=== PATIENT | female | born 1980 | race Caucasian/White ===

== ENCOUNTER 2018-07-19 12:40 | Emergency (ER) | payer OTHER, SELFPAY ==
[2018-07-19 12:42] VITALS: BP 108/75; PULSE 63; RESP 18; TEMP 37.3; O2SAT 97; BMI 21.9
--- NOTE | 2018-07-19 13:16 | ED.VISSUMM ---
- ER Visit Summary Date of Service: 07/19/18 Chief Complaint: Possible bat bite History of Present Illness: The patient is a 38 F who presents with rabies exposure that occurred today. Patient states she woke up this morning and there was a bat in her room. Patient states that animal control came to the house and was able to capture the bat. Patient does not think she was bitten. Patient denies any symptoms. Patient states that animal control euthanized the bat and it is now at the health department. Physical Examination: Vital signs are stable. Patient is afebrile. Patient is in no acute distress. Oral mucosa is pink and moist. Neck is supple. Trachea is midline. Is no JVD noted. Heart was regular rate and rhythm. Lungs are clear and equal bilateral. There is good respiratory effort noted. Abdomen is soft and nontender. Cranial nerves II through XII are intact. There are no focal motor or sensory deficits noted. The remaining physical exam is within normal limits. Emergency Department Course and Treatment: Patient was given rabies immunoglobulin and rabies vaccine here. Patient was instructed to return in 3 days for her next rabies vaccine. Patient was given a schedule for her rabies vaccinations. Patient was also instructed to follow-up with the health department. Patient understood and was agreeable with the plan. All questions were answered. Disposition: Discharged home Impression: Rabies exposure This note was generated with [employer] dictation software. It may contain incorrect words, spelling, and punctuation that were not noted in review of the chart prior to signing ED Disposition - Plan for ED Patient: Disposition: Home or Assisted Living Chief Complaint: Bite Diagnosis: Need for post exposure prophylaxis for rabies Instructions: Rabies Immune Globulin (Human) Solution for injection Referrals: Zachery Bear [Primary Care Provider] -
[2018-07-19] MEDS: Rabies Vaccine,Human Diploid 2.5 UNITS Vial IM (14:06)
[2018-07-19] MEDS: Rabies Immune Globulin 150 UNITS/ML 1240 UNITS IM (14:08)
== END 2018-07-19 14:35 | disposition home or self-care (01) ==
LOC: ED 14:04
PROVIDERS: Emergency Provider Emergency Medicine; Family Provider Student in an Organized Health Care Education/Training Program; PCP Student in an Organized Health Care Education/Training Program
DX: Z20.3 Contact with and (suspected) exposure to rabies (principal)
CPT/HCPCS: 90375; 90675; 96372; 99282

== ENCOUNTER → 2018-07-22 11:51 | Outpatient (CLI) | payer OTHER, SELFPAY ==
[2018-07-22 11:54] VITALS: BP 106/73; PULSE 52; RESP 17; O2SAT 99
== END ==
PROVIDERS: Family Provider Student in an Organized Health Care Education/Training Program; PCP Student in an Organized Health Care Education/Training Program; Visit Provider Emergency Medicine
DX: Z23 Encounter for immunization (principal)
CPT/HCPCS: 90675; 96372

== ENCOUNTER 2018-07-26 16:21 | Outpatient (CLI) | payer OTHER, SELFPAY ==
[2018-07-26 16:22] VITALS: BP 121/71; PULSE 77; RESP 15; TEMP 37.1; O2SAT 98; BMI 22.6
[2018-07-26] MEDS: Rabies Vaccine,Human Diploid 2.5 UNITS Vial IM (16:45)
== END 2018-07-26 17:10 | disposition home or self-care (01) ==
LOC: ED 18:04
PROVIDERS: Family Provider Student in an Organized Health Care Education/Training Program; PCP Student in an Organized Health Care Education/Training Program
DX: Z23 Encounter for immunization (principal); Z20.3 Contact with and (suspected) exposure to rabies
CPT/HCPCS: 90675; 96372

== ENCOUNTER → 2018-08-03 11:21 | Outpatient (CLI) | payer OTHER, SELFPAY ==
[2018-08-03 10:55] VITALS: BP 109/56; PULSE 52; RESP 18; TEMP 36.6; O2SAT 99; BMI 22.6
[2018-08-03 10:57] VITALS: BP 109/56; PULSE 52; RESP 18; TEMP 36.6; O2SAT 99; BMI 22.6
[2018-08-03 11:20] VITALS: BMI 22.6
[2018-08-03] MEDS: Rabies Vaccine,Human Diploid 2.5 UNITS Vial IM (11:21)
== END ==
PROVIDERS: Family Provider Student in an Organized Health Care Education/Training Program; PCP Student in an Organized Health Care Education/Training Program; Visit Provider Emergency Medicine
DX: Z23 Encounter for immunization (principal)
CPT/HCPCS: 90675; 96372

== ENCOUNTER → 2024-12-16 | Outpatient (CLI) | payer OTHER, SELFPAY ==
[2024-12-16 17:35] LABS: Erythrocyte Sedimentation Rate < 1 mm/hr (0-30)
[2024-12-16 17:59] LABS: Amylase 78 U/L (25-115); CPK Total, Creatine Kinase 105 U/L (26-192); CRP < 2.90 mg/L (0.0-3.0); Follicle Stimulating Hormone 11.6 mIU/mL; LDH 161 U/L (84-246); Lipase 44 U/L (13-75); Luteinizing Hormone 4.6 mIU/mL
[2024-12-22 12:08] LABS: Alternaria alternata <0.10 kU/L (Class 0); Beef <0.10 kU/L (Class 0); Bermuda Grass <0.10 kU/L (Class 0); Bluegrass, Kentucky <0.10 kU/L (Class 0); Cat Hair/Dander, Standard <0.10 kU/L (Class 0); Chocolate <0.10 kU/L (Class 0); Codfish <0.10 kU/L (Class 0); Corn 0.11 kU/L (Class 0/I); D farinae Mite <0.10 kU/L (Class 0); D pteronyssinus <0.10 kU/L (Class 0); Dog Epithelia <0.10 kU/L (Class 0); Egg, Whole <0.10 kU/L (Class 0); Elm, American White <0.10 kU/L (Class 0); Milk (Cow) <0.10 kU/L (Class 0); Mouse Urine <0.10 kU/L (Class 0); Mussels <0.10 kU/L (Class 0); Oak, White <0.10 kU/L (Class 0); PROGESTERONE 0.7 ng/mL (.); Peanut <0.10 kU/L (Class 0); Plantain, English <0.10 kU/L (Class 0); Pork <0.10 kU/L (Class 0); Ragweed, Short/Common <0.10 kU/L (Class 0); Salmon <0.10 kU/L (Class 0); Shrimp <0.10 kU/L (Class 0); Soybean <0.10 kU/L (Class 0); Tuna <0.10 kU/L (Class 0); Wheat <0.10 kU/L (Class 0)
[2024-12-23 09:07] LABS: ACCA 8 units (0-90); ALCA 18 units (0-60); AMCA 47 units (0-100); Albumin 4.4 g/dL (2.9-4.4); Aldolase 3.4 U/L (3.3-10.3); Alpha-1-Globulins 0.2 g/dL (0.0-0.4); Alpha-2-Globulins 0.5 g/dL (0.4-1.0); Deamidated Gliadin IgA 3 units (0-19); Deamidated Gliadin IgG 1 units (0-19); Endomysial Antibody IgA Negative (Negative); Estrogen, Total, Serum 72 pg/mL (.); Gamma Globulin 1.1 g/dL (0.4-1.8); Gastrin, Serum 22 pg/mL (0-115); Immunoglobulin A 75 mg/dL (87-352); Immunoglobulin E 7 IU/mL (6-495); Immunoglobulin G 1146 mg/dL (586-1602); Immunoglobulin M 106 mg/dL (26-217); gASCA 31 units (0-50); t-Transglutaminase IgA <2 U/mL (0-3)
== END | disposition home or self-care (01) ==
PROVIDERS: PCP Student in an Organized Health Care Education/Training Program; Referring Provider Internal Medicine Gastroenterology; Visit Provider Internal Medicine Gastroenterology
DX: R14.0 Abdominal distension (gaseous) (principal)
CPT/HCPCS: 36415; 82085; 82150; 82533; 82550; 82672; 82784; 82785; 82941; 83001; 83002; 83516; 83615; 83690; 84144; 84165; 85652; 86003; 86005; 86036; 86140; 86255; 86334; 86671

== ENCOUNTER → 2024-12-27 | Outpatient (CLI) | payer OTHER, SELFPAY ==
--- NOTE | 2024-12-27 17:34 | RAD_ITS ---
PROCEDURE: ABDOMEN SINGLE VIEW REASON FOR EXAM: Bloating. TECHNIQUE: Single view abdomen. COMPARISON: None FINDINGS: Bowel gas pattern is normal. No evidence of bowel obstruction.Four 4 mm small radiopaque ring like structures are noted in the left upper quadrant and within the pelvis, possibly external to the patient or ingested material. No suspicious calcifications. The bones are unremarkable. RAD/Abdomen Single View IMPRESSION: Bowel gas pattern is normal. No evidence of bowel obstruction. Four 4 mm small radiopaque ring like structures are noted in the left upper vira drant and within the pelvis, possibly external to the patient or ingested material. Reading Location: [id number]
== END | disposition home or self-care (01) ==
LOC: RAD 17:02
PROVIDERS: PCP Student in an Organized Health Care Education/Training Program; Referring Provider Internal Medicine Gastroenterology; Visit Provider Internal Medicine Gastroenterology
DX: R14.0 Abdominal distension (gaseous) (principal)
CPT/HCPCS: 74018

== ENCOUNTER → 2024-12-29 | Outpatient (CLI) | payer OTHER, SELFPAY ==
--- NOTE | 2024-12-29 17:05 | RAD_ITS ---
PROCEDURE: ABDOMEN SINGLE VIEW REASON FOR EXAM: Pain, bloating TECHNIQUE: Single view abdomen. COMPARISON: None FINDINGS: See impression RAD/Abdomen Single View IMPRESSION: Mild/moderate fecal retention. Nonobstructive bowel gas pattern. No suspiciou s intra-abdominal calcifications. No acute osseous abnormality. No radiopaque markers. Reading Location: [facility]
== END | disposition home or self-care (01) ==
LOC: RAD 17:01
PROVIDERS: PCP Student in an Organized Health Care Education/Training Program; Referring Provider Internal Medicine Gastroenterology; Visit Provider Internal Medicine Gastroenterology
DX: R14.0 Abdominal distension (gaseous) (principal)
CPT/HCPCS: 74018

== ENCOUNTER → 2025-02-20 | Outpatient (CLI) | payer OTHER, SELFPAY ==
--- NOTE | 2025-02-20 10:24 | NM_ITS ---
PROCEDURE: GASTRIC EMPTYING STUDY 02/20/2025 REASON FOR EXAM: BLOATING COMPARISON: None. TECHNIQUE: The patient ingested a standard meal of the radiopharmaceutical in oatmeal. Anterior and posterior planar images of the upper abdomen were obtained for 1 minute immediately following the meal at 1 minute intervals for a total of 60 minutes. Regions of interest were drawn, and a geometric mean was used to calculate a [id number]. Medications taken in the past 24 hours that may affect gastric emptying: None RADIOPHARMACEUTICAL: 1.1 mCi of Technetium Sulfur Colloid. FINDINGS: Percent activity remaining in stomach: 1 hour 47 % (normal 37-90%) NM/Gastric Emptying Study IMPRESSION: Normal gastric emptying study with 47% activity remaining in the stomach at 1 h our. Reading Location: [place] [id number]
== END | disposition home or self-care (01) ==
PROVIDERS: PCP Student in an Organized Health Care Education/Training Program; Referring Provider Internal Medicine Gastroenterology; Visit Provider Internal Medicine Gastroenterology
DX: R14.0 Abdominal distension (gaseous) (principal)
CPT/HCPCS: 78264; A9541

== ENCOUNTER 2025-04-26 15:01 | Outpatient (RCR) | payer OTHER, SELFPAY | END 2025-05-15 23:59 | LOC: NS 15:01 | PROVIDERS: PCP Student in an Organized Health Care Education/Training Program; Referring Provider Internal Medicine Gastroenterology; Visit Provider Internal Medicine Gastroenterology | DX: Z71.3 Dietary counseling and surveillance (principal); K90.0 Celiac disease; Z91.018 Allergy to other foods | CPT/HCPCS: 97802 ==

== ENCOUNTER → 2025-07-25 | Outpatient (CLI) | payer OTHER, SELFPAY | END | disposition home or self-care (01) | LOC: LAB 15:47 | PROVIDERS: PCP Student in an Organized Health Care Education/Training Program; Referring Provider Nurse Practitioner Acute Care; Visit Provider Nurse Practitioner Acute Care | DX: K90.0 Celiac disease (principal) | CPT/HCPCS: 36415; 83516 ==

== ENCOUNTER 2025-07-31 12:14 | Outpatient (RCR) | payer OTHER, SELFPAY | END 2025-08-15 23:59 | LOC: NS 12:14 | PROVIDERS: PCP Student in an Organized Health Care Education/Training Program; Referring Provider Internal Medicine Gastroenterology; Visit Provider Internal Medicine Gastroenterology | DX: Z71.3 Dietary counseling and surveillance (principal); K90.0 Celiac disease; Z91.018 Allergy to other foods; R14.0 Abdominal distension (gaseous) | CPT/HCPCS: 97803 ==

== ENCOUNTER 2025-10-30 11:02 | Outpatient (RCR) | payer OTHER, SELFPAY | END 2025-11-15 23:59 | LOC: NS 11:02 | PROVIDERS: PCP Student in an Organized Health Care Education/Training Program; Referring Provider Internal Medicine Gastroenterology; Visit Provider Internal Medicine Gastroenterology | DX: Z71.3 Dietary counseling and surveillance (principal); K90.0 Celiac disease; Z91.018 Allergy to other foods; R14.0 Abdominal distension (gaseous) | CPT/HCPCS: 97803 ==